=== PATIENT | male | born 1970 | race Caucasian/White ===

== ENCOUNTER 2018-03-21 01:17 | Emergency (ER) | payer OTHER | END 2018-03-21 03:03 | disposition home or self-care (01) | LOC: ER 01:17 | DX: M79.641 Pain in right hand (principal); M79.642 Pain in left hand; Y08.89XA Assault by other specified means, initial encounter; Y93.89 Activity, other specified; Y99.8 Other external cause status; Y92.89 Other specified places as the place of occurrence of the external cause | CPT/HCPCS: 29130; 73130; 99284 ==